=== PATIENT | female | born 1975 | race Two or more races ===

== ENCOUNTER 2025-02-26 18:36 | Emergency (ER) | payer MEDICAID ==
[~2025-02-26] VITALS: Ht 162.6 cm; Wt 78.5 kg
--- NOTE | 2025-02-27 02:46 | ED.PDOC ---
Foreign Body HPI Comments HPI: Poor Historian. 49-year-old female presents to emergency depart for evaluation of foreign body sensation in her right throat after she ate some chicken that she thinks may have a small wire that she may have swallowed but she still have some discomfort in her throat. Denies any other acute symptoms. Onset of symptoms last night. Past Medical History: Denies any Past Surgical History: Radha hernandez REVIEW OF SYSTEMS: CONSTITUTIONAL: Denies acute: fever, diaphoresis, chills, generalized weakness. HEAD: Denies acute: headache, photophobia Eyes: Denies acute: Double vision, vision loss, eye pain, eye discharge. EARS: Denies acute: tinnitus, hearing loss, ear discharge, ear pain, THROAT: Denies acute: swelling, difficulty swallowing , pain with swallowing, change in voice. NECK: Denies acute: neck pain, neck swelling, stiff neck. HEART: Denies acute : chest pain, palpitations, LUNGS: Denies acute: SOB, wheezing, cough, hemoptysis ABDOMEN: Denies acute: abdominal pain, Nausea, Vomiting, diarrhea, melena , hematemesis, hematochezia SKIN: Denies acute: rash, redness, lesions, itchiness. EXTREMITIES: Denies acute: calf pain, numbness, tingling, weakness, denies pain in extremity. Denies acute: Low back pain. Neuro: Denies acute: focal neurological deficit, motor or sensory focal neurological deficit, tremors, seizure like activity, confusion, dizziness, change in mental status, loss of bowel or bladder function, cauda equina like symptoms. : Denies acute: dysuria, hematuria, flank pain, increase in urinary frequency. PSYCH: Denies acute: hallucination, suicidal ideation, homicidal ideation. FEMALE: Denies acute: abnormal vaginal bleeding, foul odor, unusual discharge. PHYSICAL EXAM: General: ---no-----acute distress, awake and alert. Head: normocephalic, atraumatic. No raccoon's eyes, no villasenor sign. Neck: supple, trachea is midline, no swelling. Throat: Normal phonation. No erythema, no obstruction, no swelling, no drooling, no foreign bodies present in the visualized area. Patient points to her right neck area where she feels some discomfort in her throat. Eyes:, no erythema, no purulent discharge, no proptosis, no icterus. Heart: regular rate, regular rhythm, no significant murmur appreciated. Lungs: no apparent respiratory distress, Able to speak in full sentences. No wheezing, no rhonchi, no crackles. No stridors Clear to auscultation bilaterally. Abdomen: non tender to palpation, non distended, soft, no guarding, no rebound, + bowel sounds. Neuro: Awake, Alert, oriented to name, self, situation, follows commands GCS=15. Speech is normal. Skin: no petechia, no purpura, no cyanosis, non-pale, not jaundice. Lower extremities: --no - Pitting edema no deformity, no focal swelling, no calf TTP. Makes eye contact. moves all four extremities. Face: no apparent facial droop. Ambulating in the ED independently. No nuchal rigidity, Kernig's sign, Brudzinski's sign, no meningeal signs. ED COURSE: DISCLAIMER: This medical document was created using an electronic medical record system with voice recognition software and computerized dictation system. Although this document has been carefully reviewed, there might still be some phonetic and typographical errors. Occasional wrong-word or "sound-alike" substitutions may have occurred due to the inherent limitations of voice recognition software. These areas are purely typographical due to imperfections of the software programs and do not reflect any compromise in the patient's medical care. Please read the chart carefully and recognize, using context, where these substitutions have occurred. Chief Complaint: Foreign Body Time Seen by MD: 02:36 History of Present Illness: Allergies Allergies: Coded Allergies: NO KNOWN ALLERGIES (Unverified , 02/26/25) Information Source: Patient Mode of Arrival: Ambulatory Social History Smoker: Non-Smoker Alcohol: Denies ETOH Use Drugs: Denies Drug Use Lives In: Home Was a procedure done? Was a procedure done?: No FB Differential Dx Differential Diagnosis: Foreign Body, Perforation X-Ray, Labs, Meds, VS Vital Signs Date Time Temp Pulse Resp B/P (MAP) Pulse Ox O2 Delivery O2 Flow Rate FiO2 02/27/25 05:07 97.9 78 8 146/86 (106) 98 97.9 02/27/25 05:07 98 Room Air* 0 21 02/26/25 18:43 100.1 82 19 158/90 100 100.1 Time of 1ST Reevaluation: 03:48 Reevaluation 1ST: Unchanged Patient Education/Counseling: Diagnosis, Treatment Family Education/Counseling: Other Comments MDM: patient presented with the above HPI.---foreign body in throat sensation---workup was initiated. patient was found with the above mentioned diagnosis. the following medications were ordered: please refer to order lists of meds and tests obtained by myself Dr. Benz. Patient ED course and VS have been stabilized. Patient has been reassessed in the ED and remained in a stable condition. Pertinent incidental findings were discussed with the patient and/or family. Patient/family voices understanding and is agreeable with plan. Patient has been observed in the ED adequate length of time to insure improvement/stability. Escalation of care considered: Consideration of escalation to observation or admission CT of neck soft tissue without contrast was obtained which was unremarkable. Patient was DISCHARGED home in a stable condition. All the reports of any imaging studies that were ordered by myself were reviewed by myself. Departure 1 Departure Time of Disposition: 03:47 Impression: Primary Impression: Foreign body sensation, throat Disposition: 01 HOME / SELF CARE / HOMELESS Condition: Stable Additional Instructions: Additional instructions: Please read all instructions provided in this packet carefully. You MUST follow-up with your primary care/family doctor in 1 to 2 days. If you are unable to see your primary care/family doctor, please return to our emergency room for re-assessment and re-evaluation in 1 to 2 days. Return to the emergency room here in our facility or to the nearest ER [facility] if your symptoms change or worsen. CONSULTATIONS: you MUST Follow-up for consultation as soon as possible with: ---ENT doctor in 1-2 days. Please call for appointment. You MUST call the consultants office yourself to make an appointment. You may need to arrange that through your insurance and/or your primary/family doctor. If you are unable to see the gift consultant in 1 to 2 days, you must return to our emergency room (or any other ER of your choice) for re-assessment and re- evaluation. Adequate fluid hydration. Although you have been discharged from the Emergency Department, this does not mean that you have a "clean bill of health". No definitive diagnosis for your symptoms has been made today. It is possible that you are in the process of developing a serious illness. This is why you must return to the ED without fail if any new or worsening symptoms develop. Below is a copy of your radiological report for follow up: [facility] [id number] [facility] [id number] Ph: [phone] DIAGNOSTIC IMAGING Diagnostic Imaging Report : [id number] Signed PATIENT: PATRICIA MAYA ACCT: [id number] UNIT: [id number] : 1975 LOC: ER ROOM / BED: / AGE / SEX: 49 / F ADM STATUS: REG ER SERVICE 3 ORDERING PHYSICIAN: BENTLEY BENZ DO PROCEDURE(s): NKICT - NECK WITHOUT CONTRAST REASON: Foreign body sensation ORDER NUMBER(s): [id number], ACCESSION NUMBER(s): [id number] Exam: CT NECK WITHOUT CONTRAST History: Foreign body sensation Comparison Study: None TECHNIQUE: Multidetector CT of the neck was performed from lung bases to pubic s ymphysis. Imaging was performed without IV contrast. Axial, coronal and sagittal multiplanar reformats were obtained from the axial data set by the technologist. Radiation optimization: All CT scans at this facility use at least one of these dose optimization techniques: automated exposure control mA and/or kV adjustment per patient size (includes targeted exams where dose is matched to clinical indication) or iterative reconstruction. Radiation Dose Information: CT Dose: CTDI volume is 22.49 mGy. Dose-length product is 692.38 mGy*cm FINDINGS: The airway is patent. The thyroid gland appears unremarkable. Paranasal sinuses are well aerated. Visualized portions of the intracranial structures appear unremarkable. Parapharyngeal soft tissues appear symmetric and satisfactory. There is a single left tonsillolith. No significant adenopathy. No evidence of radiopaque foreign body. Upper chest appears unremarkable. There are bilateral breast implants. IMPRESSION: 1. No acute finding. No CT finding to suggest radiopaque foreign body. ATED BY: KARIS CONWAY MD DICTATED DATE/TIME: 02/27/25 0337 SIGNED BY: KARIS CONWAY MD SIGNED DATE/TIME: 02/27/25 0337 CC: Discharged With: Self Critical Care Note Critical Care Time?: No BENTLEY BENZ DO Feb 27, 2025 02:46
--- NOTE | 2025-02-27 03:39 | DVH ---
Exam: CT NECK WITHOUT CONTRAST History: Foreign body sensation Comparison Study: None TECHNIQUE: Multidetector CT of the neck was performed from lung bases to pubic symphysis. Imaging was performed without IV contrast. Axial, coronal and sagittal multiplanar reformats were obtained from the axial data set by the technologist. Radiation optimization: All CT scans at this facility use at least one of these dose optimization techniques: automated exposure control mA and/or kV adjustment per patient size (includes targeted exams where dose is matched to clinical indication) or iterative reconstruction. Radiation Dose Information: CT Dose: CTDI volume is 22.49 mGy. Dose-length product is 692.38 mGy*cm FINDINGS: The airway is patent. The thyroid gland appears unremarkable. Paranasal sinuses are well aerated. Visualized portions of the intracranial structures appear unremarkable. Parapharyngeal soft tissues appear symmetric and satisfactory. There is a single left tonsillolith. No significant adenopathy. No evidence of radiopaque foreign body. Upper chest appears unremarkable. There are bilateral breast implants. IMPRESSION: 1. No acute finding. No CT finding to suggest radiopaque foreign body.
[2025-02-27 05:07] VITALS: BP 146/86; PULSE 78; RESP 8; TEMP 97.9; O2SAT 98
== END 2025-02-27 05:39 | disposition home or self-care (01) ==
LOC: ER 18:36
DX: S10.15XA Superficial foreign body of throat, initial encounter (principal); R42 Dizziness and giddiness; X58.XXXA Exposure to other specified factors, initial encounter; Y93.89 Activity, other specified; Y92.89 Other specified places as the place of occurrence of the external cause; Y99.8 Other external cause status
CPT/HCPCS: 70490